=== PATIENT | female | born 1940 | race Caucasian/White ===

== ENCOUNTER 2023-03-06 10:57 | Outpatient (CLI) | payer MEDICARE, BC, SELFPAY | END 2023-03-06 10:58 | disposition home or self-care (01) | LOC: AMB 03-07 14:29 | PROVIDERS: PCP Family Medicine; Visit Provider Family Medicine | DX: R07.89 Other chest pain (principal) | CPT/HCPCS: A0425; A0429 ==

== ENCOUNTER 2023-03-06 11:25 | Emergency (ER) | payer MEDICARE, BC, SELFPAY ==
[2023-03-06 11:32] VITALS: BP 132/76; PULSE 70; RESP 16; TEMP 36.5; O2SAT 97; BMI 41.6
--- NOTE | 2023-03-06 11:43 | CRLHL7_ITS ---
For Patients: As a result of the Cures Act, medical imaging exams and procedure reports are released immediately into your electronic medical record. You may view this report before your referring provider. If you have questions, please contact your health care provider. INDICATION: Shortness of breath TECHNIQUE: Chest 2 views COMPARISON: 09/19/2021 FINDINGS: Aortic tortuosity. Cardiac silhouette enlarged. Hiatal hernia is suspected. No infiltrate or edema. No effusion or pneumothorax. Degenerative changes thoracic spine. Postop changes upper abdomen. Patchy areas of scarring. IMPRESSION: No acute findings. Dictated by Alessandro Roberts MD @ 03/06/2023 1:05:30 PM (Electronically Signed)
--- NOTE | 2023-03-06 11:44 | ED_ITS ---
HPI - General Adult General Chief complaint: Chest Pain Stated complaint: Chest pain Time Seen by Provider: 03/06/23 11:28 Source: patient Limitations: no limitations History of Present Illness HPI narrative: 83-year-old female coming in today complaining of left-sided chest pain that started last night. She tells me that she has had this similar pain many times in the past, has been worked up by cardiology. She tells me that she came into the ER this time because she has been coughing quite a bit as well. She does have lot of seasonal allergies and asthma. She has been using her Pulmicort in her nebulizer and the cough has not really subsided. She is not feeling short of breath however. She denies any fevers or chills. Cough is nonproductive. Appetite has been good. She states that her chest discomfort is currently min imal. Related Data Home Medications Medication Instructions Recorded Confirmed albuterol sulfate 90 mcg/actuation 1 - 2 puff inhalation Q4H PRN 03/06/23 03/06/23 aerosol inhaler wheezing budesonide 0.25 mg/2 mL suspension 0.25 mg inhalation BID 03/06/23 03/06/23 for nebulization nifedipine 60 mg tablet,extended 60 mg PO DAILY 03/06/23 03/06/23 release rosuvastatin 20 mg tablet 20 mg PO QPM 03/06/23 03/06/23 Allergies Allergy/AdvReac Type Severity Reaction Status Date / Time No Known Drug Allergies Allergy Verified 03/06/23 12:30 Review of Systems Status of ROS: Reports: 10 or more systems reviewed and unremarkable except as noted in History and below PFSH PFSH Social History Smoking Status: Never smoker Do you use any of these nicotine containing products: None How often do you have a drink containing alcohol: monthly or less AUDIT-C Alcohol total score: 1 Non-prescribed substance use: denies use Exam Narrative: Exam Narrative: Overweight, well-developed patient in no acute distress. Alert and oriented. Answers questions appropriately. Mood and affect are appropriate. Thoughts are goal oriented and rational. No tangential or magical thinking noted. Patient speaks in full sentences without needing to catch her breath. She does not appear ill or toxic. Does not appear uncomfortable. HEENT: Normocephalic atraumatic. Pupils are equally round reactive to light. Extraocular muscles are intact. Conjunctivae are moist without any icterus noted. Moist mucous membranes. Posterior pharynx is normal. Neck is soft without any lymphadenopathy or thyromegaly. No masses are appreciated. Cardiovascular: Heart is regular rate and rhythm S1 and S2 are present without any murmurs. Lungs: Clear to auscultation bilaterally no wheezes rhonchi or rales are appreciated. Patient takes deep breaths without any discomfort. I can reproduce her discomfort if I push just lateral to the left breast. Abdomen: Soft and nontender nondistended with normal bowel sounds. Extremities: Bilateral lower extremities are without edema. Normal DP and PT pulses. Skin: Well perfused without any obvious rashes. She has a small area of irritation underneath the left breast and on the upper abdominal wall. Does not appear infected. Const: Vital Signs, click to edit/add: Vital Signs - 24 hr 03/06/23 11:32 03/06/23 12:23 03/06/23 13:27 Temperature 97.7 F Pulse Rate [Right Pulse Oximeter] 70 64 Respiratory Rate 16 16 Blood Pressure [Le ft Upper Arm] 132/76 151/80 H Pulse Oximetry 97 96 96 Oxygen Delivery Me thod Room Air Room Air Course Course Hospital Course: EKG, read by me, shows normal sinus rhythm with a pulse of 65. Chest x-ray, read by me, does not show any acute infiltrates. Lab work was unremarkable aside from a low potassium at 3.1. Potassium chloride 20 mEq x1 orally given in the ED today. Vital Signs Vital signs: Initial Vital Signs Temperature 97.7 F 03/06/23 11:32 Temperature Source Temporal Artery Scan 03/06/23 11:32 Pulse Rate 70 03/06/23 11:32 Respiratory Rate 16 03/06/23 11:32 Blood Pressure 132/76 03/06/23 11:32 Blood Pressure Mean 94 03/06/23 11:32 Blood Pressure Position Sitting 03/06/23 11:32 Pulse Oximetry 97 03/06/23 11:32 Oxygen Delivery Method Room Air 03/06/23 11:32 Vital Signs Temperature 97.7 F 03/06/23 11:32 Pulse Rate 70 03/06/23 11:32 Respiratory Rate 16 03/06/23 11:32 Blood Pressure 132/76 03/06/23 11:32 Pulse Oximetry 97 03/06/23 11:32 Oxygen Delivery Method Room Air 03/06/23 11:32 Temperature 97.7 F 03/06/23 11:32 Pulse Rate 64 03/06/23 13:27 Respiratory Rate 16 03/06/23 13:27 Blood Pressure 151/80 H 03/06/23 13:27 Pulse Oximetry 96 03/06/23 13:27 Oxygen Delivery Method Room Air 03/06/23 13:27 Medical Decision Making MDM Narrative Medical decision making narrative: 83-year-old female with chest pain reproduced on palpation. We discussed that since she has been having a lot of allergy symptoms and coughing recently this could represent a chest wall discomfort caused by repeated coughing. I do not see any evidence of coronary artery disease or pneumonia. There is no evidence of pneumothorax, pericarditis, or other life-threatening causes of discomfort. Given that she is not hypoxic, tachycardic, worse feeling short of breath, we did not draw a D-dimer. Recommended a nasal steroid spray to see if she can decrease postnasal drip and help her cough. Request that she follow up with her primary care provider. Medical Records Medical records reviewed: Yes I reviewed the patient's medical records Lab Data Lab results reviewed: Yes I reviewed the patient's lab results Labs: Lab Results 03/06/23 03/06/23 Range/Units 12:00 12:20 WBC 8.96 (4.50-11.00) K/uL RBC 5.46 H (4.00-5.20) m/uL Hgb 15.4 (12.0-16.0) gm/dL Hct 48.2 (33.0-51.0) % MCV 88 (80-100) fL MCH 28 (26-34) pg MCHC 32 (32-36) gm/dL RDW Coeff of Dagmar 14.3 (11.5-15.5) % Plt Count 257 (140-440) K/uL Neut % (Auto) 62.2 (42.0-72.0) % Lymph % (Auto) 25.0 (20-44) % Bartow % (Auto) 10.3 (0.0-11.0) % Eos % (Auto) 1.1 (0.0-7.0) % Baso % (Auto) 0.7 (0.0-3.0) % Neut # (Auto) 5.58 (1.7-7.0) K/uL Lymph # (Auto) 2.24 (0.90-2.90) K/uL [place] # (Auto) 0.90 (0.00-0.90) K/UL Eos # (Auto) 0.10 (0.00-0.50) K/uL Baso # (Auto) 0.06 (0.00-0.30) K/uL Abs Immat Gran (auto) 0.06 (0.00-0.30) K/uL Imm/Tot Granulo (auto) 0.7 % ESR 18 (2-20) mm/hr Sodium 143 (135-149) mmol/L Potassium 3.1 L (3.6-5.1) mmol/L Chloride 110 (96-114) mmol/L Carbon Dioxide 26 (20-32) mmol/L BUN 18 (7-30) mg/dL Creatinine 1.0 (0.5-1.5) mg/dL Estimated Creat Clear 32.17 Estimated GFR 56 ml/min Glucose 113 (60-115) mg/dL Lactate 1.4 (0.5-1.9) mmol/L Calcium 9.1 (8.4-10.6) mg/dL Troponin I 0.01 (0.01-0.04) ng/mL C-Reactive Protein 0.7 (0.5-1.0) mg/dL Lipase 300 (23-300) U/L SARS-CoV-2 (PCR) Negative SARS-CoV-2 (Negative) Influenza Type A (PCR) Negative PCR FLU A (Negative) Influenza Type B (PCR) Negative PCR FLU B (Negative) RSV (PCR) Negative PCR RSV (Negative) Imaging Data Chest x-ray: Attestation: I have reviewed the pertinent imaging results. Radiologist's impression: Chest 2 views COMPARISON: 09/19/2021 FINDINGS: Aortic tortuosity. Cardiac silhouette enlarged. Hiatal hernia is suspected. No infiltrate or edema. No effusion or pneumothorax. Degenerative changes thoracic spine. Postop changes upper abdomen. Patchy areas of scarring. IMPRESSION: No acute findings. ECG Data Attestation: I personally reviewed and interpreted this ECG as follows: Discharge Plan Discharge Clinical Impression: Chest wall pain, Hypokalemia Patient Disposition: Home, Self-Care Condition: Stable Additional Instructions: Your potassium was a little low today and this was replaced while you are here. This has no bearing on the chest discomfort you are feeling. Recommended a nasal steroid spray to see if we can help dry out your nose and decrease your cough. Follow-up with your primary care provider this coming week. Prescriptions: No Action budesonide 0.25 mg/2 mL suspension for nebulization 0.25 mg inhalation BID albuterol sulfate 90 mcg/actuation HFA aerosol inhaler 1 - 2 puff INHALATION Q4H PRN (Reason: wheezing) nifedipine 60 mg tablet extended release 60 mg PO DAILY rosuvastatin 20 mg tablet 20 mg PO QPM Follow Up/Referrals: Ayala Yee PA-C [Referring] - Stand Alone Forms: [employer] Info Instructions
[2023-03-06 12:13] LABS: Lactate* 1.4 mmol/L (0.5-1.9)
[2023-03-06 12:23] VITALS: O2SAT 96
[2023-03-06 12:28] LABS: Basophils Absolute Auto 0.06 K/uL (0.00-0.30); Basophils Percent Auto 0.7 % (0.0-3.0); Eosinophils Percent Auto 1.1 % (0.0-7.0); Hematocrit 48.2 % (33.0-51.0); Hemoglobin* 15.4 gm/dL (12.0-16.0); Immature Granulocytes Abs Auto 0.06 K/uL (0.00-0.30); Immature Granulocytes Pct Auto 0.7 %; Lymphocytes Absolute Auto 2.24 K/uL (0.90-2.90); Mean Corpuscular HGB Conc 32 gm/dL (32-36); Mean Corpuscular Hemoglobin 28 pg (26-34); Mean Corpuscular Volume 88 fL (80-100); Monocytes Percent Auto 10.3 % (0.0-11.0); Neutrophils Absolute Auto 5.58 K/uL (1.7-7.0); Neutrophils Percent Auto 62.2 % (42.0-72.0); Platelet Count* 257 K/uL (140-440); RDW Coefficient of Variation % 14.3 % (11.5-15.5); Red Blood Count 5.46 m/uL (4.00-5.20); White Blood Count* 8.96 K/uL (4.50-11.00)
[2023-03-06 12:32] LABS: Chloride* 110 mmol/L (96-114); Potassium* 3.1 mmol/L (3.6-5.1); Sodium* 143 mmol/L (135-149)
[2023-03-06 12:34] LABS: Est. Creatinine Clearance* 32.17; Estimated Glomerular Filt Rate 56 ml/min; Lipase* 300 U/L (23-300)
[2023-03-06 12:35] LABS: Blood Urea Nitrogen* 18 mg/dL (7-30); Calcium* 9.1 mg/dL (8.4-10.6); Carbon Dioxide* 26 mmol/L (20-32); Glucose* 113 mg/dL (60-115)
[2023-03-06 12:36] LABS: Slide Review Reflex No
[2023-03-06 12:38] LABS: C Reactive Protein* 0.7 mg/dL (0.5-1.0)
[2023-03-06 12:47] LABS: Troponin I* 0.01 ng/mL (0.01-0.04)
[2023-03-06] MEDS: POTASSIUM CHLORIDE 10 MEQ CAPSULE ER 20 MEQ PO (13:06)
[2023-03-06 13:13] LABS: Erythrocyte SedimentationRate* 18 mm/hr (2-20)
[2023-03-06 13:27] VITALS: BP 151/80; PULSE 64; RESP 16; O2SAT 96
[2023-03-06 13:47] LABS: PCR FLU A Negative PCR FLU A (Negative); PCR FLU B Negative PCR FLU B (Negative); PCR RSV Negative PCR RSV (Negative)
[2023-03-06 13:49] LABS: SARS PCR* Negative SARS-CoV-2 (Negative)
== END 2023-03-06 14:22 | disposition home or self-care (01) ==
PROVIDERS: Emergency Provider Family Medicine; PCP Family Medicine
DX: R07.89 Other chest pain (principal)
CPT/HCPCS: 36415; 71046; 80048; 83605; 83690; 84484; 85025; 85651; 86140; 87631; 93005; 94761; 99284; 99285; A9270

== ENCOUNTER 2023-12-16 13:56 | Outpatient (CLI) | payer MEDICARE, BC, SELFPAY ==
--- OUTSIDE RECORDS SUMMARY | 2024-01-03 09:13 | XMS_ITS | Clinical Summary ---
Author Organization [facility] Address [place], [place] [address] Care Team Providers Care Wire Preparation Machine Tender Name Role Phone Estela Patel Primary Care Provider [phone] Allergies Active Allergy Reactions Criticality Noted Date Comments Fluticasone Propion-Salmeterol Tachycardia 08/04/2020 Cats (Fur, Dander, Saliva) Hives Epinephrine Wheezing 08/04/2020 House Dust Itching 08/04/2020 Naproxen Other - Describe In Comment Field 07/27/2021 Medications Medication Sig Dispensed Refills Start Date End Date Status cholecalciferol (VITAMIN D3) 1,000 unit tablet Take 25 mcg by mouth. Active acetaminophen (TYLENOL EXTRA STRGTH) 500 mg tablet Take 1,000 mg by mouth every 6 hours. 11/06/2020 Active cetirizine (ZYRTEC) 10 mg tablet Take 1 Tablet (10 mg) by mouth once daily. 0 12/11/2020 Active WalkerIndications:H istory of total left hip replacement,Primary osteoarthritis of left hip Rollator Walker for home use. 1 Device 12/22/2020 Active cyanocobalamin (VITAMIN B12) 100 mcg tablet Take 100 mcg by mouth once daily. Active NebulizerIndication s:Moderate persistent asthma, unspecified whether complicated,Viral URI with cough Nebulizer, disposable neb kit x 4, reuseable neb kit x 1, mask x 1, filters x 1. Frequency of use: daily; Medication: DuoNeb Length of need: 99 months 1 Each 04/06/2021 Active multivitamin (MVI) tablet Take 1 Tablet by mouth once daily. 0 12/27/2021 Active albuterol HFA (PRO-AIR; VENTOLIN; PROVENTIL) 90 mcg/actuation inhalerIndications: Moderate persistent asthma, unspecified whether complicated INHALE 1-2 PUFFS BY MOUTH EVERY 4 HOURS IF NEEDED FOR SHORTNESS OF BREATH 1ST CHOICE OR WHEEZING 1ST CHOICE. 8.5 g 2 02/27/2023 Active fluticasone (50 mcg per actuation) nasal solution (FLONASE)Indication s:Seasonal allergic rhinitis due to pollen Inhale 2 Sprays into affected nostril(s) two times daily. 16 g 03/09/2023 Active Nystop powderIndications:I ntertriginous candidiasis APPLY 1 STRIP TOPICALLY TO AFFECTED AREA(S) THREE TIMES DAILY TO UNDER BREAST AREA NEEDED. 60 g 5 03/20/2023 Active clotrimazole (LOTRIMIN) 1 % creamIndications:Fu ngal rash of torso APPLY TOPICALLY TO AFFECTED AREA(S) TWO TIMES DAILY. 45 g 05/30/2023 Active rosuvastatin (CRESTOR) 20 mg tabletIndications:H yperlipidemia, unspecified hyperlipidemia type TAKE 1 TABLET (20 MG) BY MOUTH AT BEDTIME. 90 Tablet 2 06/16/2023 Active mometasone 0.1% (ELOCON 0.1% OINTMENT) 0.1 % ointmentIndications :Chronic eczema APPLY TOPICALLY TO ECZEMA AREAS ONCE DAILY 45 g 5 08/07/2023 Active NIFEdipine ER (ADALAT CC) 60 mg extended-release tabletIndications:H TN (hypertension) TAKE 1 TABLET (60 MG) BY MOUTH ONCE DAILY BEFORE A MEAL. 90 Tablet 2 08/07/2023 Active omeprazole 20 mg tabletIndications:G astroesophageal reflux disease, unspecified whether esophagitis present Take 1 Tablet (20 mg) by mouth once daily before a meal. 30 Tablet 09/11/2023 Active azelastine 137 mcg/actuation (ASTELIN) nasal sprayIndications:Se asonal allergies INSTILL 1 SPRAY INTO AFFECTED NOSTRIL(S) TWO TIMES DAILY. 90 mL 2 10/15/2023 Active budesonide (PULMICORT RESPULES) 0.25 mg/2 mL neb suspensionIndicatio ns:Moderate persistent asthma with acute exacerbation Inhale 2 mL (0.25 mg) via a nebulizer two times daily. 240 mL 6 11/06/2023 Active nystatin (MYCOSTATIN) 100,000 unit/gram topical creamIndications:In tertriginous candidiasis Apply topically to affected area(s) two times daily. To yeast rash areas. 30 g 12/25/2023 Active nystatin (MYCOSTATIN) creamIndications:In tertriginous candidiasis APPLY TOPICALLY TO AFFECTED AREA(S) 2 TIMES DAILY. 30 g 5 07/10/2022 12/25/19 24 Discontinued doxycycline 100 mg tabletIndications:T ick bite of scalp, initial encounter Take 1 Tablet (100 mg) by mouth two times daily for 14 days. 28 Tablet 11/28/2023 12/12/19 24 Active Problems Problem Noted Date Diagnosed Date Venous stasis of both lower extremities 09/26/19 24 Severe persistent asthma, uncomplicated 05/22/20 23 Basal cell carcinoma (BCC) 03/02/2023 Depression, recurrent 11/10/2022 Paroxysmal SVT (supraventricular tachycardia) Skin cancer 08/30/2021 Overview: 06/28/2021: Right lower cutaneous lip, Squamous Cell Carcinoma in Situ. Mohs 10/07/2021 with Keanu Ramirez MD Morbid obesity 11/03/2020 Primary osteoarthritis of left hip 08/15/2020 Urinary incontinence 08/15/2020 Chronic eczema 08/15/2020 Intertriginous candidiasis 08/15/2020 Hypercholesterolemia 08/04/2020 Eczema of both hands 08/04/2020 Palpitations 08/04/2020 Diverticulitis 08/04/2020 Breast cyst, left 08/04/2020 Moderate persistent asthma 12/28/2009 HTN (hypertension) 12/28/2009 OA (osteoarthritis) 12/28/2009 Hyperlipidemia 12/28/2009 Encounters Date Type Department Care Team Description 12/22/2023 Refill [facility] [address] [place] [address] Katerina Porter PA Refill Request (Nystatin) 12/17/2023 2:10 PM CDT Office Visit [facility] [address] [place] [address] Estela Patel, [facility] F/U (UTI, 3 doses/) 12/17/2023 Travel 12/17/2023 Orders Only [facility] Scanner 1 scan: (1-Ord) INCOMING RECORDS-LABS, [facility], 12/17/2023 12/17/2023 Orders Only [facility] Staff, Other Clinical 1 scan: (1-Ord) [facility] 11/28/2023 E-Visit [address] [address] Estela Patel Gosia, DO Tick 11/05/[address] [address] Amanda Estela Gosia, DO Refill Request (Budesonide) 11/02/[address] [address] Estela Patel Gosia, DO Refill Request (Budesonide) 10/17/2023 10:35 AM CDT Office Visit [address] [address] Sir Pateli Gosia, DO Cough (Cough for a few days, productive - would like lungs listened to) 10/17/2023 Travel 10/12/[address] [address] Katerina Porter PA Refill Request (Azelastine 137 Mcg/actuation) 10/09/[address] [address] Estela Patel, DO Prior Authorization (budesonide (PULMICORT RESPULES) 0.25 mg/2 mL neb suspension (DENIED)) 10/08/[address] [address] Amanda Estela Gosia, DO Refill Request (budesonide ) 10/08/[address] [address] Amanda Estela Gosia, DO Refill Request (budesonide (PULMICORT RESPULES) 0.25 mg/2 mL neb suspension) from Last 3 Months Immunizations Name Administration Dates Next Due COVID-19 vaccine ([employer] 30mcg/0.3mL) 12YO+ BIVALENT PF, MDV 02/05/2023,04/11/2022 COVID-19 vaccine (Free For Kids-[employer]ech 30mcg/0.3mL) 12YO+ ALEJANDRA-SUCROSE PF, MDV 11/15/2021 COVID-19 vaccine ([employer] 30mcg/0.3mL) PF, MDV 05/09/2021,10/02/2020,09/11/2020 Influenza A (H1N1), Inactivated 03/30/2011 Influenza, High-dose Inactivated 05/06/2019 Influenza, High-dose Quadriv alent Inactivated 05/09/2023 Influenza, IIV4 03/31/2020 Influenza, Inactivated AIIV4 (Age 65+ Years) Preserv Free 04/11/2022,05/09/2021 Influenza, Inactivated IIV3 (Age 65+ Years) Preserv Free 05/09/2023 Pneumococcal Poly,23-Valent (Pneumovax) 09/09/19 14,01/16/2008,06/19/2002 Pneumococcal conj 13-Valent (Prevnar 13) 015 RSV, Bivalent Vaccine Recons tituted (Abrysvo 120MCG/0.5mL) 03/27/2023 TD, UNSPECIFIED 04/05/2004 Tdap 08/21/2017,02/06/2012 Zoster (Shingrix-RZV, recombinant) 09/25/2018, Family History Medical History Relation Name Comments Diverticulitis Brother Asthma Daughter 1 Shameka Hypertension Daughter 1 Shameka Asthma Daughter 2 Siobhan Hypertension Father COPD Maternal Grandfather Hypertension Maternal Grandfather Diabetes Maternal Grandmother Coronary artery disease Mother Dementia Mother Hypertension Paternal Grandfather Cancer-breast Sister DCIS Hyperlipidemia Sister Hypertension Sister Obesity Sister had bariatric s urg w banding Asthma Son 1 Vlad Hypertension Son 2 Taylor Cancer-ovarian No Family History Relation Name Status Comments Brother Alive Daughter 1 Shameka Alive Daughter 2 Siobhan Alive Father Maternal Grandfather Maternal Grandmother Mother Paternal Grandfather Paternal Grandmother Sister Alive Son 1 Vlad Alive Son 2 Taylor Alive Social History Tobacco Use Types Packs/Day Years Used Date Smoking Tobacco: Never Smokeless Tobacco: Never Tobacco Cessation:Counseling Given: Yes Alcohol Use Standard Drinks/Week Comments Yes 0 (1 standard drink = 0.6 oz pur e alcohol) occasionally PHQ-2 Answer Date Recorded PHQ-2 TOTAL SCORE 2 05/22/2023 Social Connections Answer Date Recorded Frequency of Communication with Friends and Fami ly 4 09/25/2023 Financial Resource Strain Answer Date R ecorded Difficulty of Paying Living Expenses 3 09/25/2023 Difficulty of Paying Living Expenses Not on file 09/25/2023 Food Insecurity Answer Date Recorded Worried About Running Out of Food in the Last Ye ar 1 09/25/2023 Transportation Needs Answer Date Record ed Lack of Transportation (Medical) 1 09/25/2023 Housing Stability Answer Date Recorded Unable to Pay for Housing in the Last Year 1 09/25/2023 Sex and Gender Information Value Date Recorded Sex Assigned at Female 05/08/2021 9:27 PM CDT Gender Identity Female 05/08/2021 9:27 PM CDT Sexual Orientation Straight 05/08/2021 9: 27 PM CDT Obstetrics History Last Filed Vital Signs Vital Sign Reading Time Taken Comments Blood Pressure 112/71 12/17/2023 1:56 PM CDT Pulse 75 12/17/2023 1:56 PM CDT Temperature 36.7 ??C (98.1 ??F) 04/28/2022 12:56 PM C DT Respiratory Rate 18 08/18/2021 10:58 AM GRINDER SET UP OPERATOR THREAD Oxygen Saturation 94% 12/17/2023 1:56 PM CDT Inhaled Oxygen Concentration - - Weight 100.2 kg (221 lb) 12/17/2023 1:56 PM CDT Height 154.6 cm (5' 0.87) 05/22/2023 10:15 AM C DT Body Mass Index 41.94 05/22/2023 10:15 AM CDT Plan of Treatment Health Maintenance Due Date Last Done Comments Influenza for age 65+ 03/30/2024 05/09/2023 , 05/09/2023, 04/11/2022, Additional history exists BMI (ht and wt on same day) for age 18+ 05/22/2024 05/22/2023, 08/31/2022, 05/17/2022, Additional history exists Depression screening for age 12+ 05/22/2024 05/22/2023, 05/17/2022, 04/11/2022, Additional history exists Medicare Wellness for age 65+ 05/22/2024, 05/17/2022, 05/09/2021, Additional history exists Tetanus booster 08/21/2027 08/21/2017, 01/27, 04/05/2004 DEXA/DXA scan for age 65+ Completed 2009 (Completed outside of [facility]) Pneumococcal series for age 65+ Completed 09/10/2014, 09/09/2013, 01/16/2008, Additional history exists Tdap Completed 08/21/2017, 02/06/2012 Zoster (shingles) series for age 50+ Completed 09/25/2018, 04/11/2018 COVID-19 vaccine series Completed 05/09/20, 02/05/2023, 04/11/2022, Additional history exists Procedures Procedure Name Priority Date/Time Associated Diagnosis Comments SCAN CORRESP-LABORATORY RESULTS 12/17/2023 10:12 AM CDT SCAN CORRESP-LABORATORY RESULTS 12/17/2023 12:00 AM CDT from Last 3 Months Results * SCAN CORRESP-LABORATORY RESULTS (12/17/2023 10:12 AM CDT) Only the most recent of2 resultswithin the time period is included. Narrative 12/17/2023 10:12 AM CDT Ordered by an unspecified provider. Other Clinical Staff OTHER from Last 3 Months Care Teams Wire Preparation Machine Tender Relationship Specialty Start Date End Date Estela Patel DO [address] [place] [address] PCP - General Family Practice 12/13/22
== END 2023-12-16 13:57 | disposition home or self-care (01) ==
LOC: NFLDREF 01-03 09:11
PROVIDERS: PCP Family Medicine; Referring Provider Family Medicine; Visit Provider Registered Nurse
DX: N39.0 Urinary tract infection, site not specified (principal); N30.01 Acute cystitis with hematuria
CPT/HCPCS: 87086; 87186

== ENCOUNTER 2024-12-12 10:58 | Outpatient (CLI) | payer MEDICARE, BC, SELFPAY | END 2024-12-12 10:59 | disposition home or self-care (01) | LOC: RAD 11:00 | PROVIDERS: PCP Family Medicine; Visit Provider Family Medicine | DX: R79.89 Other specified abnormal findings of blood chemistry (principal); I34.0 Nonrheumatic mitral (valve) insufficiency; I07.1 Rheumatic tricuspid insufficiency; R06.2 Wheezing | CPT/HCPCS: 93306 ==